=== PATIENT | male | born 1975 | race Caucasian/White ===

== ENCOUNTER 2023-07-18 07:51 | Observation (INO) | payer BC ==
[2023-07-18] MEDS ORDERED: Bupivacaine 0.25% HCL 30 ML VIAL ONE (08:10)
[2023-07-18] MEDS ORDERED: EPINEPHrine 1 MG/ML VIAL ONE (08:10)
[2023-07-18] MEDS ORDERED: Sodium Chloride 0.9% 0 ML ONE (08:15)
[2023-07-18] MEDS ORDERED: Piperacillin/Tazobactam 3.375 GM VIAL ONE (08:15)
[2023-07-18] MEDS ORDERED: Ondansetron PF 4 MG/2 ML Vial IVP PRN (08:16)
[2023-07-18] MEDS ORDERED: Glucagon 1 MG/ML KIT IM PRN (08:16)
[2023-07-18] MEDS ORDERED: Dextrose 50% Abboject 50 ML SYRINGE SLOW IVP PRN (08:16)
[2023-07-18] MEDS ORDERED: Morphine 4 MG/ML VIAL SLOW IVP PRN (08:16)
[2023-07-18] MEDS ORDERED: Dextrose 5% in Water 1,000 ML IV PRN (08:16)
[2023-07-18] MEDS ORDERED: hydrALAZINE 20 MG/ML VIAL SLOW IVP PRN (08:16)
[2023-07-18] MEDS ORDERED: HYDROcodone/Acetaminophen 10/325 mg Tablet PO PRN (08:16)
[2023-07-18] MEDS ORDERED: CEFAZOLIN 2 GM VIAL ONE (08:19)
[2023-07-18] MEDS ORDERED: Rocuronium Bromide 10 MG/ML (10ML VIAL) ONE (08:23)
[2023-07-18] MEDS ORDERED: PROPOFOL 40 ML ONE (08:23)
[2023-07-18] MEDS ORDERED: fentaNYL PF 100 MCG/2 ML SYRINGE ONE (08:23)
[2023-07-18] MEDS ORDERED: Lidocaine 1% PF 5 ML VIAL ONE (08:23)
[2023-07-18] MEDS ORDERED: Dexmedetomidine 200 MCG/2 ML VIAL ONE (08:23)
[2023-07-18] MEDS ORDERED: Lidocaine 2% 6 ML (Jelly) SYR ONE (08:26)
[2023-07-18] MEDS ORDERED: PHENYLEPHRINE-NS 100 MCG/ML 10 ML SYRINGE ONE (08:39)
[2023-07-18] MEDS ORDERED: SUGAMMADEX SODIUM 200 MG/2 ML VIAL ONE (09:09)
[2023-07-18] MEDS ORDERED: Ketorolac Tromethamine 30 MG (1 mL) VIAL ONE (09:28)
[2023-07-18] MEDS ORDERED: Ondansetron PF 4 MG/2 ML Vial ONE (09:29)
[2023-07-18] MEDS ORDERED: PROPOFOL 20 ML ONE (09:33)
[2023-07-18] MEDS ORDERED: Ondansetron HCl/PF 4 MG/2 ML Vial IVP PRN (10:05)
[2023-07-18] MEDS ORDERED: Promethazine HCl 25 MG/ML VIAL IM PRN (10:05)
[2023-07-18] MEDS ORDERED: PACU-Morphine 4MG/ML VIAL SLOW IVP PRN (10:05)
[2023-07-18] MEDS: Famotidine 20 MG TAB PO SCH ×2 (15:17→20:16)
[2023-07-18] MEDS: Ketorolac Tromethamine 30 MG (1 mL) VIAL IVP SCH ×3 (15:17→23:21)
[2023-07-18] MEDS: Famotidine/PF 20 mg/2ml Vial SLOW IVP SCH ×2 (15:17→20:21)
[2023-07-18] MEDS: Piperacillin/Tazobactam 3.375 GM in Sodium Chloride 0.9% 100 ML IVPB SCH ×2 (15:30→22:13)
[2023-07-18] MEDS: Lactated Ringer's 1,000 ML IV SCH ×2 (15:32→20:16)
[2023-07-19 04:40] LABS: #Basophils 0.1 thou/uL (0.0-0.2); #Eosinphils 0.1 thou/uL (0.0-0.7); #Monocytes 1.1 thou/uL (0.11-0.59); #Neutrophils 13.3 thou/uL (1.40-6.50); %Basophils 0.3 % (0.0-1.0); %Eosinophils 0.4 % (0.0-10.0); %Lymphocytes 7.2 % (21.0-51.0); %Monocytes 6.7 % (0.0-10.0); %Neutrophils 84.3 % (42.0-75.0); Hematocrit 43.7 % (42.0-52.0); Hemoglobin 14.5 g/dL (14.0-18.0); Mean Corpuscular HGB CONC 33.2 g/dL (32.0-36.0); Mean Corpuscular Hemoglobin 30.4 pg (27.0-31.0); Mean Corpuscular Volume 91.6 fl (78.0-98.0); Mean Platelet Volume 9.7 fL (7.4-10.4); Platelet Count 178 10x3/uL (130-400); RBC Distribution Width 12.7 % (11.5-14.5); Red Blood Cell (RBC) Count 4.77 mill/uL (4.70-6.10); White Blood Cell (WBC) Count 15.8 10x3/uL (4.8-10.8)
[2023-07-19] MEDS: Lactated Ringer's 1,000 ML IV SCH ×2 (05:10→05:35)
[2023-07-19 05:12] LABS: BUN (Urea Nitrogen) 12 mg/dL (8.9-20.6); Calc. Creatinine Clearance 155 mL/min (70-130); Calcium 8.8 mg/dL (7.8-10.44); Carbon Dioxide 24 mmol/L (22-29); Estimated GFR 79; Glucose 96 mg/dL (70-105); Sodium 139 mmol/L (136-145)
[2023-07-19 05:21] LABS: Anion Gap 13 mmol/L (10-20); Chloride 106 mmol/L (98-107); Potassium 3.8 mmol/L (3.5-5.1)
[2023-07-19] MEDS: Piperacillin/Tazobactam 3.375 GM in Sodium Chloride 0.9% 100 ML IVPB SCH ×2 (05:34→13:29)
[2023-07-19] MEDS: Ketorolac Tromethamine 30 MG (1 mL) VIAL IVP SCH ×2 (05:34→12:30)
[2023-07-19] MEDS: Famotidine/PF 20 mg/2ml Vial SLOW IVP SCH (09:14)
[2023-07-19] MEDS: Famotidine 20 MG TAB PO SCH (09:15)
[2023-07-19 11:27] VITALS: BP 142/87; TEMP 98.5
[2023-07-19] MEDS ORDERED: traMADol HCl 50 MG TAB PO PRN (13:02)
== END 2023-07-19 14:41 | disposition home or self-care (01) ==
LOC: SDC 07:51 → SJJU 12:16
PROVIDERS: ADMIT Surgery; ATTEND Surgery
PROC: 0DTJ4ZZ Resection of Appendix, Percutaneous Endoscopic Approach (ICD-10-PCS; principal; 2023-07-18)
DX: K35.80 Unspecified acute appendicitis (principal); M10.9 Gout, unspecified; G47.33 Obstructive sleep apnea (adult) (pediatric)
CPT/HCPCS: 36415; 80048; 85025; 88304; A4314; A4649; C1713; C1776; J0171; J1885; J2405; J2543; J2704; J3490; J7120; S0020

== ENCOUNTER 2023-07-19 20:02 | Observation (INO) | payer BC ==
[~2023-07-19 20:02] MED LIST: Iopamidol-370 76% 500 ML MDV (1 ML CHARGE) ONE
[2023-07-19 21:07] LABS: ALT (SGPT) 28 U/L (8-55); AST (SGOT) 17 U/L (5-34); Alkaline Phosphatase 64 U/L (40-110); Anion Gap 12 mmol/L (10-20); BUN (Urea Nitrogen) 11 mg/dL (8.9-20.6); Bilirubin, Total 0.8 mg/dL (0.2-1.2); Calc. Creatinine Clearance 0 mL/min (70-130); Calcium 9.1 mg/dL (7.8-10.44); Carbon Dioxide 19 mmol/L (22-29); Chloride 108 mmol/L (98-107); Estimated GFR 84; Globulin 3.2 g/dL (2.4-3.5); Glucose 115 mg/dL (70-105); Potassium 3.3 mmol/L (3.5-5.1); Protein, Total 7.2 g/dL (6.0-8.3); Sodium 136 mmol/L (136-145)
[2023-07-19] MEDS ORDERED: Acetaminophen 325 MG TAB ONE (22:06)
[2023-07-19] MEDS ORDERED: Piperacillin/Tazobactam 4.5 GM VIAL ONE (22:07)
[2023-07-19] MEDS ORDERED: Sodium Chloride 0.9% 100 ML ONE (22:08)
[2023-07-19 22:17] LABS: Bilirubin Negative (Negative); Blood, Urine 1+ (Negative); CAUTI Indications for Culture Pelvic or flank pain; Clarity Clear (Clear); Glucose, Urine (Dipstick) Normal (Negative); Ketone, Urine 10 mg/dL (Negative); Leukocyte Negative Leu/uL (Negative); Mucous/LPF 1+ LPF (<2+); Nitrite Negative (Negative); Protein, Urine (Dipstick) 70 mg/dL (Neg-Trace); RBC/HPF 0-3 HPF (0-3); Specific Gravity, Urine 1.024 (1.002-1.036); Squamous Epithelial None Seen HPF (0-3); WBC/HPF 0-3 HPF (0-3); pH, Urine 5.5 (5.0-9.0)
[2023-07-19 22:25] LABS: Bacteria/HPF 1+ HPF (None Seen); Calcium Oxalate Crystals 2+ HPF (None Seen)
[2023-07-19 22:26] LABS: Urine Culture Reflex No No
[2023-07-19 22:49] LABS: SARS-CoV-2 NAA Rapid Test Not Detected (NotDetected)
[2023-07-20 00:02] LABS: #Monocytes 0.9 thou/uL (0.11-0.59); #Neutrophils 13.2 thou/uL (1.40-6.50); %Basophils 0.3 % (0.0-1.0); %Eosinophils 0.3 % (0.0-10.0); %Lymphocytes 6.8 % (21.0-51.0); %Neutrophils 85.8 % (42.0-75.0); Hematocrit 44.4 % (42.0-52.0); Mean Corpuscular HGB CONC 33.8 g/dL (32.0-36.0); Mean Corpuscular Hemoglobin 31.2 pg (27.0-31.0); Mean Corpuscular Volume 92.3 fl (78.0-98.0); Mean Platelet Volume 9.9 fL (7.4-10.4); Platelet Count 229 10x3/uL (130-400); RBC Distribution Width 12.6 % (11.5-14.5); Red Blood Cell (RBC) Count 4.81 mill/uL (4.70-6.10); White Blood Cell (WBC) Count 15.4 10x3/uL (4.8-10.8)
[2023-07-20] MEDS ORDERED: Acetaminophen 325 MG TAB PO PRN (00:15)
[2023-07-20] MEDS ORDERED: Ondansetron ODT 4 MG TAB SL PRN (00:15)
[2023-07-20] MEDS ORDERED: Lactated Ringer's 1,000 ML IV SCH (00:15)
[2023-07-20] MEDS ORDERED: Ondansetron PF 4 MG/2 ML Vial IVP PRN (00:15)
[2023-07-20] MEDS ORDERED: Morphine 2 MG/ML VIAL SLOW IVP PRN (02:18)
[2023-07-20 02:35] VITALS: BMI 34.7
[2023-07-20] MEDS: Piperacillin/Tazobactam 3.375 GM in Sodium Chloride 0.9% 100 ML IVPB SCH ×2 (04:16→11:26)
[2023-07-20 10:56] LABS: #Eosinphils 0.1 thou/uL (0.0-0.7); #Monocytes 1.2 thou/uL (0.11-0.59); #Neutrophils 13.2 thou/uL (1.40-6.50); %Basophils 0.3 % (0.0-1.0); %Eosinophils 0.8 % (0.0-10.0); %Lymphocytes 6.8 % (21.0-51.0); %Monocytes 7.6 % (0.0-10.0); %Neutrophils 83.5 % (42.0-75.0); Hematocrit 43.7 % (42.0-52.0); Hemoglobin 15.2 g/dL (14.0-18.0); Mean Corpuscular HGB CONC 34.8 g/dL (32.0-36.0); Mean Corpuscular Hemoglobin 30.9 pg (27.0-31.0); Mean Platelet Volume 9.7 fL (7.4-10.4); Platelet Count 244 10x3/uL (130-400); RBC Distribution Width 12.7 % (11.5-14.5); Red Blood Cell (RBC) Count 4.92 mill/uL (4.70-6.10); White Blood Cell (WBC) Count 15.8 10x3/uL (4.8-10.8)
[2023-07-20 11:23] LABS: Mean Corpuscular Volume 88.1 fl (78.0-98.0)
[2023-07-20 12:03] VITALS: BP 147/89; TEMP 98.3
[2023-07-20] MEDS ORDERED: traMADol HCl 50 MG TAB PO PRN (12:29)
== END 2023-07-20 15:06 | disposition home or self-care (01) ==
LOC: ERS 20:02 → SURG B 07-20 00:03
PROVIDERS: ADMIT Student in an Organized Health Care Education/Training Program; ATTEND Student in an Organized Health Care Education/Training Program
DX: K35.80 Unspecified acute appendicitis (principal); R11.0 Nausea; R50.9 Fever, unspecified; G47.33 Obstructive sleep apnea (adult) (pediatric); Z79.899 Other long term (current) drug therapy; Z88.2 Allergy status to sulfonamides
CPT/HCPCS: 36415; 71046; 74177; 81001; 83605; 85025; 87040; 87086; 96365; 96366; 96375; 96376; G0378; J2272; J2543; J3490; J7120; Q9967